=== PATIENT | female | born 1945 | race Caucasian/White ===

== ENCOUNTER 2016-11-25 09:08 | Day surgery (SDC) | payer OTHER, MEDICARE ==
[~2016-11-25 09:08] MED LIST: BUPIVACAINE 0.5% 30 ML SDV ONE
[2016-11-25] MEDS ORDERED: CHLORHEXIDINE GLUC HIBICLENS 118 ML BTL TP ONE (10:00)
[2016-11-25] MEDS ORDERED: LR 1,000 ML IV ONE ×2 (10:00→10:08)
[2016-11-25] MEDS ORDERED: LIDOCAINE 1% 5 ML SDV ID PRN (10:08)
[2016-11-25] MEDS ORDERED: CEFAZOLIN 1 GM/DEXTROSE/50 ML BAG IV ONE (10:13)
[2016-11-25] MEDS ORDERED: fentaNYL 100 MCG/2 ML INJ ONE (10:48)
[2016-11-25] MEDS ORDERED: LIDOCAINE 2% JELLY 5 ML TUBE ONE (10:49)
[2016-11-25] MEDS ORDERED: PROPOFOL 200 MG/20 ML VIAL ONE (10:49)
[2016-11-25] MEDS ORDERED: LIDOCAINE 2% 5 ML SDV ONE (10:49)
[2016-11-25] MEDS ORDERED: ONDANSETRON 4 MG/2 ML VIAL ONE ×2 (10:49→13:48)
[2016-11-25] MEDS ORDERED: DEXAMETHASONE 4 MG/ML VIAL ONE ×2 (10:49)
--- NOTE | 2016-11-25 12:44 | GOP ---
[f rep st] OPERATIVE REPORT Corrected report DATE OF ADMISSION: 11/25/2016 PREOPERATIVE DIAGNOSES: 1. 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 2. Right trigger thumb. POSTOPERATIVE DIAGNOSES: 1. 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 2. Right trigger thumb. PROPOSED OPERATION: 1. Trapezial excision, right thumb. 2. Partial trapezoidal excision, right thumb. 3. Volar collateral ligament reconstruction and tendon interposition. 4. Right trigger thumb release. INDICATION: The patient had longstanding basal thumb arthritis, which affected both the carpometacarpal as well as the triscaphe joint and symptoms were not well controlled nonoperatively. It was felt that reconstruction of the right basal thumb area with volar collateral ligament reconstruction and tendon interposition arthroplasty would be a good option for her. At the same sitting , the right trigger thumb would be released. DESCRIPTION: Under general anesthesia, the patient's right arm was prepped and draped in the usual fashion and the arm tourniquet was applied at 250 mmHg. A longitudinal incision was made at the basal thumb area extending from the radial styloid to the base of the thumb metacarpal. Skin and subcutaneous tissue was reflected. A branch of the radial sensory nerve was identified and protected. The abductor longus and extensor brevis tendons were mobilized and reflected. Radial artery and associated veins were also mobilized and reflected. The periosteum and capsule were elevated from the carpometacarpal and the triscaphe joint. Both joints showed advanced arthritic change. There was a large beak area bone spur and peripheral bone spurs, and there was exposed subchondral bone at the triscaphe joint extending all the way across the distal pole scaphoid, and also complete articular cartilage loss at the carpometacarpal joint. The trapezium was excised with a bone rongeur and a partial proximal trapezoidal excision was performed using an osteotome and mallet, and that was smoothed with a bone rongeur. This presented touching of the trapezoid and scaphoid. The volar collateral ligament was nonexistent. There was a large beak area bone spur and loose fragment, both of which were excised. The volar collateral ligament was reconstructed by harvesting the radial 1/2 of the abductor pollicis longus tendon. That tendon was brought down, but left intact, at the base of the thumb metacarpal and it was directed through the volar capsule around the FCR tendon and through the dorsal capsule, then sutured to itself and this reconstructed the volar collateral ligament. Then, additional weaving of the tendon was performed again, looping the tendon through the volar capsule back through the dorsal capsule and suturing it to itself. This created a nice pursestring of tendon and capsular tissue between the distal pole scaphoid and the base of the thumb metacarpal. The stability of the thumb was tested. The joint glided nice and smoothly, with no crepitation. The rest of the basal thumb capsule and periosteum were suture repaired also with 4-0 PDS. The wound was irrigated one last time with body temperature saline. 0.5% plain Marcaine was instilled at the radial nerve and median nerves at the distal third forearm, and local infiltration of the operative area was performed as well with 0.5% plain Marcaine. Attention was turned to the palmar aspect of the thumb, and there, a transverse incision was made at the MP flexion crease. Skin and subcutaneous tissue were reflected. Radial and ulnar sensory nerves were identified and protected. The A1 debo was significantly thickened. That was released longitudinally and there was clear hour glassing of the FPL tendon at that level. Proximal extension of the A1 debo was released. The tendon appeared normal in that area. The oblique debo was left intact. Full range of motion of the IP joint was restored, with nice smooth gliding of the FPL tendon. That wound was irrigated. Neurovascular structures were placed in their anatomic position. Skin closed with horizontal mattress sutures of 5-0 Prolene. A bulky soft pressure dressing was applied on both incisions followed by fiberglass thumb spica splint held in place with an Duglas bandage. Tourniquet deflation resulted in immediate pinking of the digits. She was brought to the recovery area where detailed postoperative instructions were given prior to discharge. A prescription for tramadol and Keflex had been provided preoperatively. She had been given a gram of Ancef prior to commencement of surgery intravenously. Followup arrangements in the office for about a week postop for dressing, suture removal and cast application for 3 additional weeks. /[id number]/MODL Steve WT, 11/30/16, asad ROQUE
== END 2016-11-25 14:49 | disposition home or self-care (01) ==
LOC: FSGY 09:08
PROVIDERS: ATTEND Specialist
PROC: 0RR Upper Joints, Replacement (ICD-10-PCS; principal; 2016-11-25 10:30)
PROC: 0LN70ZZ Release Right Hand Tendon, Open Approach (ICD-10-PCS; principal; 2016-11-25 10:30)
DX: M18.0 Bilateral primary osteoarthritis of first carpometacarpal joints (principal); M65.311 Trigger thumb, right thumb; K90.0 Celiac disease
CPT/HCPCS: J0690; J1100; J2405; J2704; J3010